=== PATIENT | female | born 1945 | race African-American/Black ===

== ENCOUNTER 2017-04-25 23:29 | Emergency (ER) | payer MEDICARE, MEDICAID ==
--- NOTE | 2017-04-26 07:28 | RAD ---
2 VIEWS CHEST: Date: 04/25/17 COMPARISON: 10/25/07. HISTORY: Right-sided rib pain after tripping and falling over a box with right chest trauma. FINDINGS: Two views of the chest show normal sized cardiomediastinal silhouette. There is no evidence of consol idation, mass, or pleural effusion. The bones are unremarkable. IMPRESSION: No evidence of acute cardiopulmonary disease. POS: [facility]
== END 2017-04-26 02:17 | disposition home or self-care (01) ==
LOC: ERS 23:29
DX: R07.81 Pleurodynia (principal); E11.9 Type 2 diabetes mellitus without complications; E78.5 Hyperlipidemia, unspecified; I10 Essential (primary) hypertension; F41.9 Anxiety disorder, unspecified
CPT/HCPCS: 71046

== ENCOUNTER 2018-04-27 14:09 | Emergency (ER) | payer MEDICARE, MEDICAID ==
[2018-04-27 14:51] LABS: #Eosinphils 0.1 thou/uL (0.0-0.7); #Lymphocytes 2.8 thou/uL (1.20-3.40); #Monocytes 0.7 thou/uL (0.11-0.59); %Basophils 0.5 % (0.0-1.0); %Eosinophils 1.5 % (0.0-10.0); %Lymphocytes 42.8 % (21.0-51.0); %Monocytes 10.3 % (0.0-10.0); Hemoglobin 13.3 g/dL (12.0-16.0); Mean Corpuscular HGB CONC 32.8 g/dL (32.0-36.0); Mean Corpuscular Hemoglobin 31.7 pg (27.0-31.0); Mean Corpuscular Volume 96.6 fL (78.0-98.0); Mean Platelet Volume 7.2 fL (7.4-10.4); Platelet Count 230 thou/uL (130-400); RBC Distribution Width 12.1 % (11.5-14.5); Red Blood Cell (RBC) Count 4.19 mill/uL (4.20-5.40); White Blood Cell (WBC) Count 6.6 thou/uL (4.8-10.8)
--- NOTE | 2018-04-27 15:10 | RAD ---
PORTABLE CHEST: Date: 04/27/18 PROVIDED CLINICAL HISTORY: Chest pain. FINDINGS: Cardiac and mediastinal silhouette is within normal limits. Lungs appear clear. No pleural fluid or p neumothorax apparent. Vascular calcification involves the aortic arch. IMPRESSION: No evidence for an acute cardiopulmonary process. POS: [facility]
[2018-04-27 16:06] LABS: ALT (SGPT) 12 U/L (8-55); AST (SGOT) 19 U/L (5-34); Albumin 3.7 g/dL (3.4-4.8); Alkaline Phosphatase 109 U/L (40-150); Anion Gap 15 mmol/L (10-20); BUN (Urea Nitrogen) 13 mg/dL (9.8-20.1); Bilirubin, Total 0.6 mg/dL (0.2-1.2); CK (CPK) 122 U/L (29-168); Calc. Creatinine Clearance 0 mL/min (70-130); Calcium 9.5 mg/dL (7.8-10.44); Carbon Dioxide 20 mmol/L (23-31); Chloride 106 mmol/L (98-107); Estimated GFR-MDRD 63; Globulin 3.7 g/dL (2.4-3.5); Glucose 93 mg/dL (83-110); Lipase 123 U/L (8-78); Potassium 3.2 mmol/L (3.5-5.1); Protein, Total 7.4 g/dL (6.0-8.3); Sodium 138 mmol/L (136-145)
== END 2018-04-27 16:20 | disposition home or self-care (01) ==
LOC: ERS 14:09
DX: R07.2 Precordial pain (principal); E11.9 Type 2 diabetes mellitus without complications; E78.5 Hyperlipidemia, unspecified; I10 Essential (primary) hypertension; F03.90 Unspecified dementia, unspecified severity, without behavioral disturbance, psychotic disturbance, mood disturbance, and anxiety; F41.9 Anxiety disorder, unspecified; Z79.899 Other long term (current) drug therapy
CPT/HCPCS: 36415; 71045; 80053; 82550; 83690; 83880; 84484; 85025; 93005

== ENCOUNTER 2018-10-25 19:57 | Emergency (ER) | payer MEDICARE, MEDICAID ==
[~2018-10-25 19:57] MED LIST: ISOVUE-370 76%-LOCM 1 ML ONE
[2018-10-25 21:04] LABS: #Eosinphils 0.1 thou/uL (0.0-0.7); #Lymphocytes 2.1 thou/uL (1.20-3.40); #Neutrophils 5.9 thou/uL (1.40-6.50); %Basophils 0.2 % (0.0-1.0); %Eosinophils 0.6 % (0.0-10.0); %Lymphocytes 22.8 % (21.0-51.0); %Monocytes 11.4 % (0.0-10.0); %Neutrophils 64.9 % (42.0-75.0); Hemoglobin 12.5 g/dL (12.0-16.0); Mean Corpuscular HGB CONC 31.8 g/dL (32.0-36.0); Mean Corpuscular Hemoglobin 31.4 pg (27.0-31.0); Mean Corpuscular Volume 98.7 fL (78.0-98.0); Mean Platelet Volume 6.7 fL (7.4-10.4); Platelet Count 232 thou/uL (130-400); RBC Distribution Width 12.5 % (11.5-14.5); Red Blood Cell (RBC) Count 3.98 mill/uL (4.20-5.40); White Blood Cell (WBC) Count 9.1 thou/uL (4.8-10.8)
[2018-10-25] MEDS ORDERED: Ketorolac Tromethamine 30 MG/ML VIAL ONE (21:05)
[2018-10-25] MEDS ORDERED: Morphine 4 MG/ML VIAL ONE (21:05)
[2018-10-25 21:29] LABS: ALT (SGPT) 13 U/L (8-55); AST (SGOT) 20 U/L (5-34); Albumin 4.2 g/dL (3.4-4.8); Alkaline Phosphatase 129 U/L (40-150); Anion Gap 13 mmol/L (10-20); BUN (Urea Nitrogen) 12 mg/dL (9.8-20.1); Bilirubin, Total 0.4 mg/dL (0.2-1.2); Calc. Creatinine Clearance 0 mL/min (70-130); Calcium 9.8 mg/dL (7.8-10.44); Carbon Dioxide 27 mmol/L (23-31); Chloride 100 mmol/L (98-107); Estimated GFR-MDRD 60; Globulin 3.4 g/dL (2.4-3.5); Glucose 197 mg/dL (83-110); Potassium 4.1 mmol/L (3.5-5.1); Protein, Total 7.6 g/dL (6.0-8.3); Sodium 136 mmol/L (136-145)
--- NOTE | 2018-10-25 22:10 | CT ---
CT angiogram neck: 10/25/2018 COMPARISON: None HISTORY: Left-sided neck pain TECHNIQUE: Axial CT imaging at 1.25 mm intervals from lung apices through skull base with IV contrast using CT angiogram protocol. Coronal and sagittal 3-D reformatted imaging obtained. FINDINGS: There are emphysematous changes noted in bilateral lung apices, right greater than left. The retroantral fat and parapharyngeal fat is clear bilaterally. Motion artifact limits assessment at the skull base, level of the oropharynx, and level of the hyoid bone. A bovine arch is noted. The origin of the left subclavian artery, left vertebral artery, left common carotid artery, innominate artery, right subclavian artery, right common carotid artery, and right vertebral artery appears unremarkable. There is mild/moderate focal stenosis of the proximal left vertebral artery, best seen on coronal charles ge 46. The left common carotid artery is tortuous. The right common carotid artery is tortuous as well. There is prominent calcified plaque seen focally within the distal right common carotid artery with a focal area of stenosis estimated at approximately 35-40% on the basis of NASCET criteria. There is no hemodynamically significant stenosis involving the right internal carotid artery. Motion artifact limits assessment at the axial level of the C1 ring. There is severe atherosclerotic calcification involving the distal left CCA and proximal left ICA. Ev aluation for underlying stenosis is markedly limited on the basis of motion. Stenosis thus cannot be accurately quantified but severe stenosis approaching occlusion is suspected in the region of the distal left common carotid artery and the proximal left internal carotid artery. Distal to this, the left internal carotid artery is patent. There is atherosclerotic calcification of the cavernous carotid arteries. No lymphadenopathy is apparent within the neck. Limited assessment for aerodigestive tract lesion alanna ears unremarkable. Bilateral vertebral arteries are patent. Probable hemodynamically significant stenosis is seen involv ing the distal right vertebral artery secondary to atherosclerotic plaque, at the axial level of the skull base. Review of the osseous structures demonstrates multilevel cervical spine degenerative change with post erior osteophyte formation/disc bulge at C3-4 and C4-5 and multilevel bilateral facet hypertrophy. IMPRESSION: Motion limited examination as detailed above. Severe (critical) stenosis approaching occl usion is suspected in the region of the distal left CCA and proximal left ICA which cannot be accurately quantified secondary to motion artifact.
== END 2018-10-25 23:10 | disposition home or self-care (01) ==
LOC: ERS 19:57
DX: I65.22 Occlusion and stenosis of left carotid artery (principal); E11.9 Type 2 diabetes mellitus without complications; E78.5 Hyperlipidemia, unspecified; I10 Essential (primary) hypertension; F03.90 Unspecified dementia, unspecified severity, without behavioral disturbance, psychotic disturbance, mood disturbance, and anxiety; F41.9 Anxiety disorder, unspecified; Z79.899 Other long term (current) drug therapy
CPT/HCPCS: 70498; 80053; 84484; 85025; 93005; 96374; 96375; J1885; J2270; Q9966

== ENCOUNTER 2018-11-21 05:54 | Inpatient (IN) | payer MEDICARE, MEDICAID ==
[2018-11-21] MEDS ORDERED: ceFAZolin Sodium (SDC) 2 GM/100 ML BAG ONE (06:29)
[2018-11-21] MEDS ORDERED: Promethazine HCl 25 MG/ML VIAL SLOW IVP PRN (07:46)
[2018-11-21] MEDS ORDERED: Ondansetron HCl/PF 4 MG/2 ML Vial IVP PRN (07:46)
[2018-11-21] MEDS ORDERED: Promethazine HCl 25 MG/ML VIAL IM PRN ×2 (07:46→09:48)
--- NOTE | 2018-11-21 09:03 | OP ---
DATE OF PROCEDURE: 11/21/2018 PREOPERATIVE DIAGNOSIS: Asymptomatic left carotid stenosis. POSTOPERATIVE DIAGNOSIS: Asymptomatic left carotid stenosis. PROCEDURE PERFORMED: Left carotid endarterectomy with patch angioplasty. ANESTHESIA: General endotracheal, Dr. Mil Everett. ESTIMATED BLOOD LOSS: Less than 50. DRAINS: None. SPECIMENS: Left internal jugular lymph node chain for lymph node protocol. DESCRIPTION OF PROCEDURE: After consent was obtained, the patient was brought to the operating room and placed in supine position on the operating room table. Appropriate central line was placed and general endotracheal anesthesia was induced. Head was rotated to the right. Neck was extended and joints appropriately supported. Left neck was prepped and draped in usual sterile fashion. Skin incision was made. Dissection through the platysma was taken with electrocautery. The left sternocleidomastoid was mobilized posteriorly. The carotid sheath was entered. Common, internal, and external carotid arteries were carefully exposed. The facial vein branch was divided between clips and ties. The vagus and hypoglossal nerves were noted and protected throughout the procedure. The patient was systemically heparinized. After 3 minutes, internal, common and external carotid arteries were serially clamped. Incision was made on the common carotid artery extended through the bulb on to the internal carotid artery distal to the plaque. A 10-Upper Sorbian Cochran shunt was placed and antegrade flow reestablished. Endarterectomy was begun on the common carotid artery. Good medial plane was developed. An eversion endarterectomy of the external carotid artery was performed. A good tapered distal endpoint was obtained on the internal carotid artery. Medial fibers were debrided. Artery was flushed with heparinized saline. Bovine pericardial patch was sewn in place with running 6-0 Prolene suture. Prior to completion of patch suture line, shunt was clamped and removed. Artery was back bled and flushed with heparinized saline. The patch suture line was completed and antegrade flow reestablished at left external carotid artery for 10 seconds, followed by the internal carotid artery. 25 mg of protamine was administered. Hemostasis was ensured. Wounds irrigated, closed in layers and Dermabond applied to skin. The patient was awakened and neurologically intact at completion of procedure. Needle, sponge, and instrument counts were all reported as correct at the end of the procedure. The patient tolerated the procedure well and transferred to recovery room in stable condition. Job ID: [id number]
[2018-11-21] MEDS ORDERED: hydrALAZINE 20 MG/ML VIAL SLOW IVP PRN (09:48)
[2018-11-21] MEDS ORDERED: Ondansetron PF 4 MG/2 ML Vial IVP PRN (09:48)
[2018-11-21] MEDS ORDERED: Acetaminophen 325 MG TAB PO PRN (09:48)
[2018-11-21] MEDS ORDERED: Nitroglycerin 50 MG/250 ML BOT 250 ML IVPB PRN (09:48)
[2018-11-21] MEDS ORDERED: Phenylephrine 10 MG/NS 250 ML 250 ML IVPB PRN (09:48)
[2018-11-21] MEDS ORDERED: traMADol HCl 50 MG TAB PO PRN (09:48)
[2018-11-21] MEDS ORDERED: Hydrochlorothiazide 25 MG TAB PO SCH (10:15)
[2018-11-21] MEDS ORDERED: Losartan 25 MG TAB PO SCH (10:15)
[2018-11-21 10:38] VITALS: BMI 27.3
[2018-11-21] MEDS: Sodium Chloride 0.9% 1,000 ML IV SCH (11:00)
[2018-11-21] MEDS: Fentanyl 100 MCG/2 ML VIAL SLOW IVP PRN ×2 (11:42→15:02)
[2018-11-21] MEDS: CEFAZOLIN 2 GM in Premix Bag 1 BAG IVPB SCH ×2 (14:24→21:51)
[2018-11-21] MEDS ORDERED: Lorazepam 0.5 MG TAB PO SCH (21:00)
[2018-11-21] MEDS ORDERED: Atorvastatin Calcium 40 MG TAB PO SCH (21:00)
[2018-11-21] MEDS ORDERED: Donepezil HCl 10 MG TAB PO SCH (21:00)
[2018-11-22] MEDS: CEFAZOLIN 2 GM in Premix Bag 1 BAG IVPB SCH (05:51)
[2018-11-22 07:01] VITALS: TEMP 97.9
[2018-11-22] MEDS: Sodium Chloride 0.9% 1,000 ML IV SCH ×2 (07:28→07:31)
[2018-11-22] MEDS ORDERED: Aspirin 81 mg Enteric Coated Tablet PO SCH (09:00)
[2018-11-22] MEDS ORDERED: Losartan 25 MG TAB PO SCH (09:00)
[2018-11-22] MEDS ORDERED: MEMANTINE HCL 21 MG PO SCH ×2 (09:00)
[2018-11-22] MEDS ORDERED: Hydrochlorothiazide 25 MG TAB PO SCH (09:00)
--- NOTE | 2018-11-22 22:23 | DIS ---
DATE OF ADMISSION: 11/21/2018 DATE OF DISCHARGE: 11/22/2018 DIAGNOSIS: Asymptomatic left carotid stenosis. PROCEDURE: Left carotid endarterectomy with patch angioplasty. DESCRIPTION OF HOSPITAL STAY: Ms. Kinsey was brought in for elective left carotid endarterectomy. She has done well and is neurologically intact at discharge. She will be discharged to home with no medicine changes. Followup is with me in 2 weeks. Job ID: [id number]
== END 2018-11-22 09:59 | disposition home or self-care (01) | DRG 39 ==
LOC: SURG A 05:54 → EDSTATUS 09:32 → CCU 10:09
PROVIDERS: ADMIT Thoracic Surgery (Cardiothoracic Vascular Surgery); ATTEND Thoracic Surgery (Cardiothoracic Vascular Surgery)
PROC: 03CL0ZZ Extirpation of Matter from Left Internal Carotid Artery, Open Approach (ICD-10-PCS; principal; 2018-11-21)
PROC: 03UL0KZ Supplement Left Internal Carotid Artery with Nonautologous Tissue Substitute, Open Approach (ICD-10-PCS; 2018-11-21)
PROC: 07B10ZX Excision of Right Neck Lymphatic, Open Approach, Diagnostic (ICD-10-PCS; 2018-11-21)
DX: I65.22 Occlusion and stenosis of left carotid artery (principal); E11.9 Type 2 diabetes mellitus without complications; I10 Essential (primary) hypertension; E78.5 Hyperlipidemia, unspecified; F41.9 Anxiety disorder, unspecified; G30.9 Alzheimer's disease, unspecified; F02.80 Dementia in other diseases classified elsewhere, unspecified severity, without behavioral disturbance, psychotic disturbance, mood disturbance, and anxiety; Z79.899 Other long term (current) drug therapy; Z79.82 Long term (current) use of aspirin
CPT/HCPCS: 88184; 88307; 94640; J0690; J1642; J3010; J7620

== ENCOUNTER 2019-11-02 20:53 | Emergency (ER) | payer MEDICARE, MEDICAID ==
[2019-11-02 21:47] LABS: #Eosinphils 0.1 thou/uL (0.0-0.7); #Lymphocytes 1.6 thou/uL (1.20-3.40); #Monocytes 0.6 thou/uL (0.11-0.59); #Neutrophils 3.1 thou/uL (1.40-6.50); %Basophils 0.4 % (0.0-1.0); %Eosinophils 0.9 % (0.0-10.0); %Lymphocytes 30.4 % (21.0-51.0); %Monocytes 10.7 % (0.0-10.0); %Neutrophils 57.6 % (42.0-75.0); Hemoglobin 12.7 g/dL (12.0-16.0); Mean Corpuscular HGB CONC 31.3 g/dL (32.0-36.0); Mean Corpuscular Hemoglobin 31.6 pg (27.0-31.0); Mean Platelet Volume 6.5 fL (7.4-10.4); Platelet Count 246 thou/uL (130-400); RBC Distribution Width 14.6 % (11.5-14.5); Red Blood Cell (RBC) Count 4.02 mill/uL (4.20-5.40); White Blood Cell (WBC) Count 5.3 thou/uL (4.8-10.8)
[2019-11-02 22:07] LABS: ALT (SGPT) 16 U/L (8-55); AST (SGOT) 18 U/L (5-34); Albumin 4.1 g/dL (3.4-4.8); Alkaline Phosphatase 97 U/L (40-110); Anion Gap 15 mmol/L (10-20); BUN (Urea Nitrogen) 6 mg/dL (9.8-20.1); Bilirubin, Total 0.7 mg/dL (0.2-1.2); Calc. Creatinine Clearance 0 mL/min (70-130); Calcium 9.5 mg/dL (7.8-10.44); Carbon Dioxide 21 mmol/L (23-31); Chloride 106 mmol/L (98-107); Estimated GFR-MDRD 72; Globulin 3.9 g/dL (2.4-3.5); Glucose 115 mg/dL (83-110); Potassium 3.5 mmol/L (3.5-5.1); Sodium 138 mmol/L (136-145)
--- NOTE | 2019-11-02 22:09 | RAD ---
Exam: Chest one view HISTORY:Altered mental status Comparison: 04/27/2018 FINDINGS: Cardiac silhouette: Normal Aorta: Atherosclerosis Pulmonary vessels: Normal Costophrenic angles: Clear LUNGS: No masses or consolidation. Pneumothorax: None Osseous abnormalities: None IMPRESSION: No acute cardiopulmonary process. Atherosclerosis
[2019-11-02 22:37] LABS: Bilirubin Negative (Negative); Blood, Urine Negative (Negative); Clarity Clear (Clear); Glucose, Urine (Dipstick) Normal (Negative); Ketone, Urine Negative (Negative); Leukocyte Negative Leu/uL (Negative); Nitrite Negative (Negative); Protein, Urine (Dipstick) Negative (Neg-Trace); Specific Gravity, Urine 1.003 (1.002-1.036); Urobilinogen Normal mg/dL (Less than 2)
[2019-11-02 22:45] LABS: Acetaminophen Less than 6.0 mcg/mL (10.0-30.0); Alcohol Less than 10 mg/dL (Less than 10); Salicylate Less than 8.0 mg/dL (15.0-30.0)
[2019-11-02 22:47] LABS: Amphetamine Not Detected (NotDetected); Barbiturates Screen Not Detected (NotDetected); Benzodiazepine Screen Detected (NotDetected); Cocaine Metabolite Screen Not Detected (NotDetected); Medtox Control Line Valid? VALID (VALID); Medtox Reader # READER 4; Methadone Not Detected (NotDetected); Methamphetamine Not Detected (NotDetected); Opiate Screen Not Detected (NotDetected); Oxycodone Screen Not Detected (NotDetected); Phencyclidine (PCP) Not Detected (NotDetected); THC/Cannabinoid Screen Not Detected (NotDetected); Tricyclic Screen Not Detected (NotDetected)
--- NOTE | 2019-11-02 22:49 | CT ---
Exam: Head CT without contrast HISTORY: Altered mental status. Dementia. Worsening confusion. COMPARISON: 05/10/2010 FINDINGS: Hemorrhage: No intraparenchymal hemorrhage or extra-axial hematoma. Brain parenchyma: Cortical pulido-white matter differentiation is preserved. No mass effect or midline shift. Basilar cisterns are patent.Age-appropriate atrophy. Chronic small vessel ischemic changes of the white matter are identified. Ventricular system: Ventricles and sulci are patent and symmetric. Calvarium: Intact. Sinuses and mastoid air cells: Adequate aeration. IMPRESSION: 1. No acute intracranial process 2. Increasing white matter hypodensities, likely representing chronic small vessel ischemic change. N onemergent brain MRI if clinically warranted.
== END 2019-11-02 23:15 | disposition home or self-care (01) ==
LOC: ERS 20:53
DX: R46.89 Other symptoms and signs involving appearance and behavior (principal); E11.9 Type 2 diabetes mellitus without complications; I10 Essential (primary) hypertension; E78.5 Hyperlipidemia, unspecified
CPT/HCPCS: 36415; 70450; 71045; 80053; 80306; 80307; 81003; 83605; 83690; 85025

== ENCOUNTER → 2022-02-01 09:20 | Inpatient (IN) | payer MEDICARE, MEDICAID ==
[2018-11-13 17:35] VITALS: BMI 26.9
[2018-11-13 18:12] LABS: Hemoglobin 12.3 g/dL (12.0-16.0); Mean Corpuscular HGB CONC 32.4 g/dL (32.0-36.0); Mean Corpuscular Hemoglobin 31.7 pg (27.0-31.0); Mean Platelet Volume 6.3 fL (7.4-10.4); Platelet Count 286 thou/uL (130-400); RBC Distribution Width 12.7 % (11.5-14.5); Red Blood Cell (RBC) Count 3.86 mill/uL (4.20-5.40); White Blood Cell (WBC) Count 7.5 thou/uL (4.8-10.8)
[2018-11-13 18:33] LABS: Anion Gap 11 mmol/L (10-20); BUN (Urea Nitrogen) 13 mg/dL (9.8-20.1); Calc. Creatinine Clearance 49 mL/min (70-130); Calcium 10.2 mg/dL (7.8-10.44); Carbon Dioxide 28 mmol/L (23-31); Chloride 106 mmol/L (98-107); Glucose 106 mg/dL (83-110); Potassium 3.6 mmol/L (3.5-5.1); Sodium 141 mmol/L (136-145)
[~2022-02-01 09:20] MED LIST changes: +Fentanyl 100 MCG/2 ML VIAL ONE; +Fentanyl 250 MCG/5 ML VIAL ONE; +Heparin 5,000 UNITS/ML VIAL ONE; -ISOVUE-370 76%-LOCM 1 ML ONE; +Nitroglycerin 50 MG/250 ML BOT 250 ML ONE; +Phenylephrine 10 MG/ML VIAL ONE; +Protamine Sulfate 50 MG/5 ML VIAL ONE
== END | disposition home or self-care (01) | DRG 68 ==
LOC: SURG A 11-14 05:41 → UNDOADMIN 11-14 05:41 → T4-A 09:19
PROVIDERS: ADMIT Thoracic Surgery (Cardiothoracic Vascular Surgery); ATTEND Thoracic Surgery (Cardiothoracic Vascular Surgery)
DX: I65.22 Occlusion and stenosis of left carotid artery (principal); Z53.9 Procedure and treatment not carried out, unspecified reason
CPT/HCPCS: 80048; 85027; 93005; 93010; J1644; J2370; J2720; J3010

== ENCOUNTER 2023-04-19 10:40 | Emergency (ER) | payer MEDICARE, MEDICAID ==
[2023-04-19] MEDS ORDERED: Dexamethasone 10 MG/ML VIAL ONE (11:35)
== END 2023-04-19 11:43 | disposition home or self-care (01) ==
LOC: ERS 10:40
DX: M54.50 Low back pain, unspecified (principal); E11.9 Type 2 diabetes mellitus without complications; I10 Essential (primary) hypertension
CPT/HCPCS: 99283; J1100

== ENCOUNTER 2024-02-26 15:02 | Emergency (ER) | payer MEDICAID, MEDICARE ==
[2024-02-26 16:06] LABS: #Basophils 0.03 10x3/uL (0.0-0.2); %Basophils 0.5 % (0.0-1.0); %Eosinophils 0.7 % (0.0-10.0); %Lymphocytes 36.2 % (21.0-51.0); %Neutrophils 54.3 % (42.0-75.0); Hematocrit 45.6 % (36.0-47.0); Hemoglobin 14.4 g/dL (12.0-16.0); Mean Corpuscular HGB CONC 31.6 g/dL (32.0-36.0); Mean Corpuscular Hemoglobin 32.3 pg (27.0-31.0); Mean Corpuscular Volume 102.2 fL (78.0-98.0); Mean Platelet Volume 8.8 fL (7.4-10.4); Platelet Count 184 10x3/uL (130-400); RBC Distribution Width 14.2 % (11.5-14.5); Red Blood Cell (RBC) Count 4.46 mill/uL (4.20-5.40)
[2024-02-26] MEDS ORDERED: hydrALAZINE 20 MG/ML VIAL ONE (16:08)
[2024-02-26] MEDS ORDERED: Acetaminophen 500 MG TAB ONE (16:11)
[2024-02-26 16:44] LABS: ALT (SGPT) 12 U/L (8-55); AST (SGOT) 17 U/L (5-34); Albumin 3.6 g/dL (3.4-4.8); Alkaline Phosphatase 115 U/L (40-110); Anion Gap 14 mmol/L (10-20); BUN (Urea Nitrogen) 15 mg/dL (9.8-20.1); Bilirubin, Total 0.3 mg/dL (0.2-1.2); Calc. Creatinine Clearance 0 mL/min (70-130); Calcium 9.2 mg/dL (7.8-10.44); Carbon Dioxide 19 mmol/L (23-31); Chloride 109 mmol/L (98-107); Estimated GFR 50; Globulin 4.2 g/dL (2.4-3.5); Glucose 254 mg/dL (83-110); Magnesium 2.3 mg/dL (1.6-2.6); Potassium 4.1 mmol/L (3.5-5.1); Protein, Total 7.8 g/dL (5.8-8.1); Sodium 138 mmol/L (136-145)
[2024-02-26 16:49] LABS: Troponin I Less than 0.010 ng/mL (< 0.028)
[2024-02-26] MEDS ORDERED: Haloperidol Lactate 5 MG/ML VIAL ONE (16:55)
== END 2024-02-26 17:43 | disposition home or self-care (01) ==
LOC: ERS 15:02
DX: R07.89 Other chest pain (principal); R41.0 Disorientation, unspecified; R00.2 Palpitations; R00.1 Bradycardia, unspecified; E11.9 Type 2 diabetes mellitus without complications; I10 Essential (primary) hypertension
CPT/HCPCS: 36415; 71045; 80053; 83735; 83880; 84443; 84484; 85025; 85379; 93005; 94760; 96374; J0360; J1630